=== PATIENT | female | born 1985 | race Caucasian/White ===

== ENCOUNTER → 2016-11-03 | Outpatient (CLI) | payer OTHER | LOC: FIMAGING 10:12 | PROVIDERS: ATTEND Orthopaedic Surgery Hand Surgery | DX: M75.82 Other shoulder lesions, left shoulder (principal); M19.012 Primary osteoarthritis, left shoulder ==

== ENCOUNTER → 2018-01-26 | Outpatient (CLI) | payer OTHER | LOC: FIMAGING 10:19 | PROVIDERS: ATTEND Nurse Practitioner | DX: M25.512 Pain in left shoulder (principal); G89.4 Chronic pain syndrome; M24.112 Other articular cartilage disorders, left shoulder; M14.812 Arthropathies in other specified diseases classified elsewhere, left shoulder; D89.89 Other specified disorders involving the immune mechanism, not elsewhere classified; Z98.890 Other specified postprocedural states ==

== ENCOUNTER → 2019-01-28 | Outpatient (CLI) | payer OTHER | LOC: EMCIMAGING 11:11 ==